=== PATIENT | female | born 1990 | race African-American/Black ===

== ENCOUNTER 2021-04-10 20:23 | Inpatient (IN) | payer OTHER ==
[2021-04-10] MEDS ORDERED: LACTATED RINGERS 1,000 ML IV SCH ×2 (21:00→23:15)
[2021-04-10 21:51] LABS: Basophils % (A) 0 %; Eosinophils # (A) 0.1 k/uL (0-0.7); Eosinophils % (A) 1 %; HCT 32.7 % (34.0-46.0); HGB 10.6 gm/dL (11.4-16.0); Hypochromasia Slight; Lymphocytes # (A) 1.1 k/uL (1.0-4.8); Lymphocytes % (A) 22 %; MCH 27.3 pg (25.0-35.0); MCHC 32.4 g/dL (31.0-37.0); MCV 84.3 fL (80.0-100.0); Mean Platelet Volume 8.4; Monocytes # (A) 0.3 k/uL (0-1.0); Monocytes % (A) 6 %; Neutrophils # (A) 3.5 k/uL (1.3-7.7); Neutrophils % (A) 69 %; Platelet Count 120 k/uL (150-450); RBC 3.88 m/uL (3.80-5.40); WBC 5.1 k/uL (3.8-10.6)
[2021-04-10] MEDS ORDERED: AMPICILLIN 2,000 MG in SODIUM CHLORIDE 0.9% 100 ML IVPB ONE (23:00)
--- NOTE | 2021-04-10 23:04 | US ---
EXAMINATION TYPE: US OB >= 14 wk fetus DATE OF EXAM: 04/10/2021 COMPARISON: US 2016, this is first US for this . CLINICAL HISTORY: no care, unknown dates . TECHNIQUE: Transabdominal (TA) GESTATIONAL AGE / DATING Physician Established: Unknown Dates by LMP: Unknown Dates by First Scan: This is first scan at this facility. Dates by Current Scan: (36 weeks/3 days) EDC: 05/05/2021 SURVEY IUP: Single PLACENTA: Limited visibility. Appears heterogeneous. Appears to be fundal-posterior. Complex area se en measurin.8 x 2.2 x 1.6 cm. PREVIA: No previa seen. RAMA: 11.15 cm Normal CERVICAL LENGTH (transabdominal: norm > 3.0cm): Not seen. No TV per RN. BIOMETRY PRESENTATION: Vertex BPD: 8.81 cm 35 weeks / 4 days HC: 32.70 cm 37 weeks / 1 day AC: 33.26 cm 37 weeks / 1 day FL: 7.17 cm 36 weeks / 5 days ESTIMATED WEIGHT IN GRAMS: 3053 grams ESTIMATED WEIGHT IN LBS/OZ: 6 lbs. 12 oz. WEIGHT PERCENTAGE BASED ON ESTABLISHED DATES: Patient unsure of dates HC/AC: 0.98 Normal FL/AC: 21.54 Normal HEART RATE: 145 bpm RHYTHM: Normal Limited head measurements due to patient's pain tolerance. IMPRESSION: The ultrasound gestational age is 36 weeks and 3 days. The RAHAT is 05/05/2021. No complicating process s een.
[2021-04-10] MEDS ORDERED: CARBOPROST TROMETHAMINE 250 MCG/ML 1 ML AMP IM PRN (23:05)
[2021-04-10] MEDS ORDERED: OXYTOCIN 10 UNIT/ML 1 ML VIAL IM PRN (23:05)
[2021-04-10] MEDS ORDERED: METHYLERGONOVINE 0.2 MG/ML 1 ML AMP IM PRN (23:05)
[2021-04-10] MEDS ORDERED: LIDOCAINE 0.5% (PF) 5 MG/ML (50 ML SDV) SQ PRN (23:05)
[2021-04-10] MEDS ORDERED: TERBUTALINE 1 MG/ML VIAL SQ PRN (23:05)
--- NOTE | 2021-04-10 23:11 | P.HPOB ---
History of Present Illness H&P Date: 04/10/21 Chief Complaint: Contractions, no care This is a 30-year-old 7 para 6 female unknown estimated gestational age who presents to labor and delivery with complaints of contractions. Patient states that she was seen in [place] by a physician earlier in this however hasn't seen anybody since March. She was visiting family here in [place] yesterday. Patient despite multiple questioning does not know her due date and really has no idea except sometime in May. Patient states she began having contractions and pain earlier this evening. Cervix initially on presentation and is 4-5 now 6 cm dilated. Ultrasound shows a vertex 36- 1/2 weeks. There is a small area of the placenta that appears complex. She's had no vaginal bleeding. Review of Systems Genitourinary: Reports Menstruation: Reports amenorrhea Past Medical History Past Medical History: No Reported History Additional Past Medical History / Comment(s): Patient reports all previous vaginal deliveries. She states that one of her infants was born at 22 weeks. History of Any Multi-Drug Resistant Organisms: None Reported Past Surgical History: No Surgical Hx Reported Past Anesthesia/Blood Transfusion Reactions: No Reported Reaction Past Psychological History: No Psychological Hx Reported Smoking Status: Never smoker Past Alcohol Use History: None Reported Past Drug Use History: None Reported - Past Family History Father History Unknown: Yes Medications and Allergies Home Medications Medication Instructions Recorded Confirmed Type No Known Home Medications 07/12/16 04/10/21 History Allergies Allergy/AdvReac Type Severity Reaction Status Date / Time No Known Allergies Allergy Verified 04/10/21 20:51 Exam Intake and Output 04/10/21 04/10/21 04/11/21 14:59 22:59 06:59 Other: Weight 83.461 kg - OBG Physical Exam Abdomen: bowel sounds normal, no diffuse tenderness, no bruit present, no guarding noted, no hepatomegaly, no splenomegaly, no mass Vagina: normal moisture, no discharge Cervix: no lesion (Cervix is 5-6 vertex presentation), no discharge Uterus: enlarged Results Result Diagrams: 04/10/21 21:42 04/10/21 21:42 Abnormal Lab Results - Last 24 Hours (Table) 04/10/21 04/10/21 Range/Units 21:42 21:42 Hgb 10.6 L (11.4-16.0) gm/dL Hct 32.7 L (34.0-46.0) % Plt Count 120 L (150-450) k/uL Glucose 132 H (74-99) mg/dL Assessment and Plan Assessment: This is a 30-year-old 7 para 6 female unknown estimated gestational age but approximately 36 weeks by ultrasound today with limited to no care. Patient's found to be in active labor. Plan is antibiotic prophylaxis and anticipate vaginal delivery. Patient will need a health care social worker consult . (1) 36 weeks gestation of Current Visit: Yes Status: Acute Code(s): Z3A.36 - 36 WEEKS GESTATION OF PRE GNANCY SNOMED Code(s): 17189956 (2) No care in current in third trimester Current Visit: Yes Status: Acute Code(s): O09.33 - SUPRVSN OF PREG W INSUFFICIENT ANTENAT CARE, THIRD TRIMESTER SNOMED Code(s): 389492683 (3) Normal labor Current Visit: Yes Status: Acute Code(s): O80 - ENCOUNTER FOR FULL-TERM UNCOMPLICATED DELIVERY; Z37.9 - OUTCOME OF DELIVERY, UNSPECIFIED SNOMED Code(s): 57567311
[2021-04-10 23:13] LABS: Appearance,Urine Clear (Clear); Bilirubin,Urine Negative (Negative); Blood,Urine Negative (Negative); Color,Urine Yellow; Glucose,Urine (UA) Trace (Negative); Ketones,Urine Negative (Negative); Leukocyte Esterase,Urine Moderate (Negative); Mucus,Urine Moderate /hpf; Nitrite,Urine Negative (Negative); Protein,Urine 1+ (Negative); RBC,Urine 4 /hpf (0-5); Specific Gravity,Urine 1.029 (1.001-1.035); Squamous Epithelial Cell,Urine 1 /hpf (0-4); WBC,Urine 14 /hpf (0-5)
[2021-04-10 23:15] LABS: Amphetamine Screen,Urine Not Detected (NotDetected); Barbiturate Screen,Urine Not Detected (NotDetected); Benzodiazepines Screen,Urine Not Detected (NotDetected); Cocaine Screen,Urine Not Detected (NotDetected); Methadone Screen, Urine Not Detected (NotDetected); Opiate Screen,Urine Not Detected (NotDetected); Oxycodone Screen, Urine Not Detected (NotDetected); Phencyclidine Screen,Urine Not Detected (NotDetected); Tricyclic Antidepressant,Urine Not Detected (NotDetected); Urn Cannabinoid Scrn Not Detected (NotDetected)
[2021-04-11] MEDS ORDERED: BENZOCAINE/MENTHOL SPRAY 1 GM/SPRAY AEROSOL TOPICAL PRN (01:35)
[2021-04-11] MEDS ORDERED: diphenhydrAMINE 50 MG/ML 1 ML VIAL IVP PRN (01:35)
[2021-04-11] MEDS ORDERED: bisacodyL 10 MG SUPP RECTAL PRN (01:35)
[2021-04-11] MEDS ORDERED: ZOLPIDEM 5 MG TAB PO PRN (01:35)
[2021-04-11] MEDS ORDERED: SIMETHICONE 80 MG CHEWABLE PO PRN (01:35)
[2021-04-11] MEDS ORDERED: HYDROCORTISONE 2.5% RECTAL CREAM 30 GM TUBE RECTAL PRN (01:35)
[2021-04-11] MEDS ORDERED: LANOLIN CREAM 5 GM TUBE TOPICAL PRN (01:35)
[2021-04-11] MEDS ORDERED: diphenhydrAMINE 25 MG CAP PO PRN (01:35)
--- NOTE | 2021-04-11 01:39 | P.PROBDLV ---
Vaginal Delivery Note - . Vaginal Delivery Note: Normal spontaneous vaginal delivery viable female infant Apgars 8 and 9 delivery time is 0125 hrs. Please see dictated H&P for intimate details of this patient's admission. Brief summary this is a 30-year-old 7 para 6 female 36-3/7 weeks gestation by ultrasound done today who presented to labor complaints of regular painful contractions found to be in labor. Patient's had no care. Patient is artificial rupture membranes for clear fluid. She is given IV ampicillin due to unknown group B strep status. Patient's labor progresses quickly and she precipitously delivered as a viable female infant Apgars 8 and 9 at 0125 hrs. This is done the presence of the nurse. Placenta is then spontaneously delivered intact. Inspection of perineum shows no lacerations and no repair is indicated. Infant and mother stable delivery room. There are no complications. All counts correct 3.
[2021-04-11] MEDS ORDERED: OXYTOCIN 30 UNITS/500 ML NS 30 UNIT in SALINE 1 500ML.BAG IV SCH (01:45)
[2021-04-11] MEDS: IBUPROFEN 600 MG TAB PO PRN ×2 (01:53→07:16)
[2021-04-11] MEDS ORDERED: AMPICILLIN 1,000 MG in SODIUM CHLORIDE 0.9% 50 ML IVPB SCH (03:00)
[2021-04-11] MEDS: ACETAMINOPHEN TAB 325 MG TAB PO PRN ×2 (03:58→19:36)
--- NOTE | 2021-04-11 06:43 | P.PNOBGVD ---
Subjective - Subjective Patient reports: Reports appetite normal, Reports voiding normally, Reports pain well controlled, Reports ambulating normally : doing well Objective - Latest Vital Signs Latest vital signs: Vital Signs Temp Pulse Resp BP 04/11/21 03:31 99.1 F 73 16 138/81 04/11/21 03:01 98.8 F 86 16 135/80 04/11/21 02:31 97.4 F L 68 16 135/82 04/11/21 02:16 98.7 F 74 16 137/82 04/11/21 02:01 91 16 151/88 04/11/21 01:46 98.4 F 73 16 136/85 04/11/21 01:31 98.4 F 78 16 141/81 04/10/21 23:17 98.3 F 88 18 131/85 Intake and Output 04/10/21 04/10/21 04/11/21 14:59 22:59 06:59 Intake Total 167.917 Balance 167.917 Intake: Intake, IV Titration 167.917 Amount Oxytocin 30 Units/500 ml 167.917 Ns 30 unit In Saline 1 500ml.bag @ Per Protocol IV .Q0M [facility] Rx#:[id number] Other: # Voids 1 Weight 83.461 kg 83.461 kg - Labs Labs: Abnormal Lab Results - Last 24 Hours (Table) 04/10/21 04/10/21 04/10/21 Range/Units 21:42 21:42 22:51 Hgb 10.6 L (11.4-16.0) gm/dL Hct 32.7 L (34.0-46.0) % Plt Count 120 L (150-450) k/uL Glucose 132 H (74-99) mg/dL Urine Protein 1+ H (Negative) Urine Glucose (UA) Trace H (Negative) Ur Leukocyte Esterase Moderate H (Negative) Urine WBC 14 H (0-5) /hpf Urine Mucus Moderate H (None) /hpf Assessment and Plan Assessment: day #1. Patient is resting without complaints. Vital signs are stable and she is afebrile. Uterus is firm nontender and she is having normal lochia. My impression is a normal course. Plan is to continue routine care discharge home tomorrow. (1) 36 weeks gestation of Current Visit: Yes Status: Acute Code(s): Z3A.36 - 36 WEEKS GESTATION OF SNOMED Code(s): 50970687 (2) No care in current in third trimester Current Visit: Yes Status: Acute Code(s): O09.33 - SUPRVSN OF PREG W INSUFFICIENT ANTENAT CARE, THIRD TRIMESTER SNOMED Code(s): 774070565 (3) Normal labor Current Visit: Yes Status: Acute Code(s): O80 - ENCOUNTER FOR FULL-TERM UNCOMPLICATED DELIVERY; Z37.9 - OUTCOME OF DELIVERY, UNSPECIFIED SNOMED Code(s): 06530560
[2021-04-11] MEDS: SENNOSIDES-DOCUSATE SODIUM 1 EACH TAB PO SCH ×2 (07:16→19:36)
[2021-04-11 12:19] LABS: Basophils % (A) 0 %; Eosinophils % (A) 0 %; HCT 31.4 % (34.0-46.0); HGB 10.5 gm/dL (11.4-16.0); Lymphocytes # (A) 1.8 k/uL (1.0-4.8); Lymphocytes % (A) 15 %; MCH 27.8 pg (25.0-35.0); MCHC 33.5 g/dL (31.0-37.0); MCV 83.2 fL (80.0-100.0); Mean Platelet Volume 6.5; Monocytes # (A) 0.9 k/uL (0-1.0); Monocytes % (A) 8 %; Neutrophils # (A) 8.6 k/uL (1.3-7.7); Neutrophils % (A) 74 %; RBC 3.78 m/uL (3.80-5.40); RDW 15.1 % (11.5-15.5); WBC 11.6 k/uL (3.8-10.6)
[2021-04-11 12:32] LABS: Platelet Count 320 k/uL (150-450)
[2021-04-12 00:26] LABS: Hepatitis B Surface Antigen Non-Reactive (Non-Reactive)
[2021-04-12] MEDS: IBUPROFEN 600 MG TAB PO PRN (05:49)
--- NOTE | 2021-04-12 06:08 | P.PNOBGVD ---
Subjective - Subjective Patient reports: Reports appetite normal, Reports voiding normally, Reports pain well controlled, Reports ambulating normally : doing well Objective - Latest Vital Signs Latest vital signs: Vital Signs Temp Pulse Resp BP Pulse Ox 04/12/21 00:00 98.1 F 72 16 139/89 95 04/11/21 16:00 97.9 F 72 16 116/73 04/11/21 12:00 98 F 78 16 132/79 04/11/21 08:00 97.9 F 83 17 124/80 99 Intake and Output 04/11/21 04/11/21 04/12/21 14:59 22:59 06:59 Intake Total 600 Balance 600 Intake: Oral 600 Other: # Voids 2 1 1 - Exam Lungs: bilateral: normal Chest: Normal S1, Normal S2 Extremities: Present: normal Abdomen: Present: normal appearance, soft Uterus: Present: normal, firm - Labs Labs: Abnormal Lab Results - Last 24 Hours (Table) 04/11/21 Range/Units 11:36 WBC 11.6 H (3.8-10.6) k/uL RBC 3.78 L (3.80-5.40) m/uL Hgb 10.5 L (11.4-16.0) gm/dL Hct 31.4 L (34.0-46.0) % Neutrophils # 8.6 H (1.3-7.7) k/uL Assessment and Plan Assessment: day #1. Patient is resting without complaints. Vital signs are stable and she is afebrile. Uterus is firm nontender she's having normal lochia. Per laundry tub maker the baby needs to stay until tomorrow due to unknown group B strep status, therefore the patient wishes to stay today as well. Repeat platelets yesterday were 320. I impression is a normal course. Plan is to continue routine care and discharge home tomorrow (1) 36 weeks gestation of Current Visit: Yes Status: Acute Code(s): Z3A.36 - 36 WEEKS GESTATION OF SNOMED Code(s): 52995465 (2) No care in current in third trimester Current Visit: Yes Status: Acute Code(s): O09.33 - SUPRVSN OF PREG W INSUFFICIENT ANTENAT CARE, THIRD TRIMESTER SNOMED Code(s): 619299638 (3) Normal labor Current Visit: Yes Status: Acute Code(s): O80 - ENCOUNTER FOR FULL-TERM UNCOMPLICATED DELIVERY; Z37.9 - OUTCOME OF DELIVERY, UNSPECIFIED SNOMED Code(s): 78664554
[2021-04-12] MEDS: SENNOSIDES-DOCUSATE SODIUM 1 EACH TAB PO SCH ×2 (07:37→20:46)
[2021-04-12 16:24] LABS: HIV 2 AB Non-Reactive (Non-Reactive); HIV AB P24 Non-Reactive (Non-Reactive); HIV P24 AG Non-Reactive (Non-Reactive)
--- NOTE | 2021-04-13 06:22 | P.PNOBGVD ---
Subjective - Subjective Patient reports: Reports appetite normal, Reports voiding normally, Reports pain well controlled, Reports ambulating normally : doing well Objective - Latest Vital Signs Latest vital signs: Vital Signs Temp Pulse Resp BP Pulse Ox 04/13/21 00:00 97.9 F 71 16 124/74 99 04/12/21 16:00 98.3 F 62 16 120/78 04/12/21 07:38 97.9 F 65 16 119/80 Intake and Output 04/12/21 04/12/21 04/13/21 14:59 22:59 06:59 Output Total 600 Balance -600 Output: Urine 600 Other: # Voids 2 1 2 - Exam Lungs: bilateral: normal Chest: Normal S1, Normal S2 Extremities: Present: normal Abdomen: Present: normal appearance, soft Uterus: Present: normal, firm Assessment and Plan Assessment: day #2. Patient is resting without complaints wishes to go home. Vital signs are stable she's afebrile. Uterus firm nontender she's having normal lochia. My impression is a normal course. Plan is to continue routine care and discharge home today (1) 36 weeks gestation of Current Visit: Yes Status: Acute Code(s): Z3A.36 - 36 WEEKS GESTATION OF SNOMED Code(s): 61320628 (2) No care in current in third trimester Current Visit: Yes Status: Acute Code(s): O09.33 - SUPRVSN OF PREG W INSUFFICIENT ANTENAT CARE, THIRD TRIMESTER SNOMED Code(s): 943666112 (3) Normal labor Current Visit: Yes Status: Acute Code(s): O80 - ENCOUNTER FOR FULL-TERM [facility] OMPLICATED DELIVERY; Z37.9 - OUTCOME OF DELIVERY, UNSPECIFIED SNOMED Code(s): 20878664
--- NOTE | 2021-04-13 06:26 | P.DS ---
Providers Date of admission: 04/10/21 23:03 Expected date of discharge: 04/13/21 Attending physician: Eriberto Garcia Primary care physician: Stated None - Discharge Diagnosis(es) (1) 36 weeks gestation of Current Visit: Yes Status: Acute (2) No care in current in third trimester Current Visit: Yes Status: Acute (3) Normal labor Current Visit: Yes Status: Acute Hospital Course: Please see dictated H&P for intimate details of this patient's admission. Brief summary this 30-year-old 7 para 6 female 36-3/7 weeks by ultrasound on admission with no care presents to labor and delivery in active labor. Patient quickly goes on have a vaginal delivery viable female . Please see dictated delivery note. day #2 patient's felt be stable for discharge home follow up in 6 weeks. Procedures: Normal spontaneous vaginal delivery Patient Condition at Discharge: Good Plan - Discharge Summary New Discharge Prescriptions: New Ibuprofen [Motrin] 600 mg PO Q6H PRN #30 tab PRN Reason: Pain Discharge Medication List Ibuprofen [Motrin] 600 mg PO Q6H PRN #30 tab 04/13/21 [Rx] Follow up Appointment(s)/Referral(s): Eriberto Garcia MD [STAFF PHYSICIAN] - 05/23/21 11:15 am Patient Instructions/Handouts: Vaginal Delivery (DC) Activity/Diet/Wound Care/Special Instructions: No intercourse or anything per vagina for 6 weeks. Please call if any fever, chills, excessive vaginal bleeding, and/or abdominal pain. Discharge Disposition: HOME SELF-CARE
[2021-04-13 08:20] VITALS: BP 126/73; PULSE 68; RESP 15; TEMP 98.1
[2021-04-13] MEDS: SENNOSIDES-DOCUSATE SODIUM 1 EACH TAB PO SCH (10:43)
[2021-04-13 16:00] LABS: C. trachomatis,PCR Negative (Neg,Equiv); Chlamydia trachomatis Source Urine; N. gonorrhoeae,PCR Negative (Neg,Equiv); Neisseria Source Urine
== END 2021-04-13 10:15 | disposition home or self-care (01) | DRG 807 ==
LOC: FBPOP 20:23 → 4FBP 23:03
PROVIDERS: ADMIT Obstetrics & Gynecology; ATTEND Obstetrics & Gynecology
PROC: 10E0XZZ Delivery of Products of Conception, External Approach (ICD-10-PCS; principal; 2021-04-11)
DX: O62.3 Precipitate labor (principal); Z37.0 Single live birth; Z3A.36 36 weeks gestation of pregnancy
CPT/HCPCS: 59025; 76805; 80306; 81001; 82947; 84112; 85025; 86762; 86780; 86850; 86900; 86901; 87340; 87390; 87491; 87591; 88307; 96360; 99214